=== PATIENT | female | born 1965 | race Caucasian/White ===

== ENCOUNTER 2016-07-28 01:39 | Emergency (ER) | payer OTHER ==
[~2016-07-28] VITALS: Ht 172.7 cm; Wt 90.0 kg
[2016-07-28 01:43] VITALS: BP 160/67; PULSE 95; RESP 16; TEMP 98; O2SAT 100
[2016-07-28] MEDS ORDERED: SODIUM CHLORIDE 0.9% FLUSH 5 ML FLUSH IVF PRN (01:45)
[2016-07-28] MEDS ORDERED: ADVA250A INH ×2 (01:46→02:34)
[2016-07-28] MEDS ORDERED: VENTAER INH ×2 (01:46→02:34)
[2016-07-28 01:48] VITALS: RESP 16; O2SAT 96
--- NOTE | 2016-07-28 02:01 | PD ---
HPI Chief Complaint: Respiratory Symptoms Time Seen by Provider: 01:45 Travel History International Travel<30 days: No Contact w/Intl Traveler<30days: No Traveled to known affect area: No History of Present Illness HPI 50-year-old female with history of asthma here with complaint of shortness of breath. Patient is here on vacation from [place]. She is staying at a hotel. States that the odor in the room smelled a little musty and seems to have triggered her asthma. She woke up from sleep this evening with wheezing, shortness of breath and feeling tight throughout the chest. She tried her albuterol inhaler without much improvement and called EMS. EMS noted patient to be hypoxic to approximately 88%. He given albuterol 2 and 125 mg Solu- Medrol with significant improvement of her symptoms. No recent illness, congestion, fevers or chills. PFSH Past Medical History Respiratory: Yes Past Surgical History Section: Yes Other Surgery: Yes (tubal ligation, back surgery 2) Social History Alcohol Use: Yes (occasional) Tobacco Use: No Allergies-Medications (Allergen,Severity, Reaction): Coded Allergies: Augmentin (Verified Allergy, Unknown, 07/28/16) Reported Meds & Prescriptions Reported Meds & Active Scripts Active Reported Advair Diskus Inh (Fluticasone-Salmeterol Inh) 250-50 Mcg/Blist Aer 2 Puff INH DAILY Rinse mouth after use. Ventolin Hfa 18 GM Inh (Albuterol Sulfate) 90 Mcg/Act Aer 2 Puff INH Q4H PRN Review of Systems Except as stated in HPI: all other systems reviewed are Neg Physical Exam Narrative GENERAL: Well-appearing female in no acute distress SKIN: Warm and dry. HEAD: Normocephalic. EYES: No scleral icterus. No injection or drainage. ENT: Mucous membranes pink and moist. NECK: Supple CARDIOVASCULAR: Borderline tachycardia with heart rate in the 90s to 100 100s, regular rhythm. No murmur appreciated. RESPIRATORY: Mild respiratory distress with wheezing throughout, no increased work of breathing. GASTROINTESTINAL: Abdomen soft, non-tender, nondistended. MUSCULOSKELETAL: Moves all extremities normally. No edema. NEUROLOGICAL: Awake and alert. Normal speech. PSYCHIATRIC: Appropriate mood and affect; insight and judgment normal. Data Data Last Documented VS Vital Signs Date Time Temp Pulse Resp B/P Pulse Ox O2 Delivery O2 Flow Rate FiO2 2/5/17 01:48 16 96 Aerosol Mask 07/28/16 01:43 98.0 95 160/67 Orders Iv Access Insert/Monitor (07/28/16 01:45) Electrocardiogram (07/28/16 01:45) Ecg Monitoring (07/28/16 01:45) Oximetry (07/28/16 01:45) Chest, Single Ap (07/28/16 01:45) Sodium Chloride 0.9% Flush (Ns Flush) (07/28/16 01:45) Albuterol-Ipratropium Neb (Duoneb Neb) (07/28/16 01:45) MDM Medical Decision Making Medical Screen Exam Complete: Yes Emergency Medical Condition: Yes Medical Record Reviewed: Yes Differential Diagnosis 50-year-old female with history of asthma here with complaint of wheezing, shortness of breath and chest tightness. Exam is consistent with asthma exacerbation, differential includes pneumonia, arrhythmia, pneumothorax and less likely ACS. Narrative Course A sin placed on monitor, IV established. Given 125 mg Solu-Medrol already by EMS prior to arrival. Given DuoNeb 3. Twelve-lead EKG shows sinus tachycardia , rate [address] abnormalities, normal intervals. Portable chest x -ray obtained that by my read shows no acute abnormalities. Patient felt markedly improved and will be discharged to home with steroids and MDI therapy as needed. Diagnosis Primary Impression: Asthma exacerbation Referrals: Primary Care Physician as needed Additional Instructions: Steroids, inhalers as prescribed. Return to the ER for the warning signs discussed. Med/Other Pt SpecificInfo: Prescription(s) given Scripts Prednisone 50 Mg Tab50 Mg PO DAILY 5 Days Ref 0 Prov:Laura Howard MD 07/28/16 Fluticasone-Salmeterol Inh (Advair Diskus Inh)250-50 Mcg/Blist Aer2 Puff INH DAILY #1 INHALER Ref 0 Rinse mouth after use. Prov:Laura Howard MD 07/28/16 Albuterol 18 GM Inh (Ventolin Hfa 18 GM Inh)90 Mcg/Act Aer2 Puff INH Q4H PRN ( SHORTNESS OF BREATH) #1 INHALER Ref 0 Prov:Laura Howard MD 07/28/16 Disposition: 01 DISCHARGE HOME Condition: Stable Laura Howard MD Jul 28, 2016 02:01
--- NOTE | 2016-07-28 02:06 | RADRPT ---
EXAM DATE/TIME: 07/28/2016 01:54 [facility] COMPARISON: No previous studies available for comparison. INDICATIONS : Shortness of breath. MEDICAL HISTORY : Asthma SURGICAL HISTORY : None. ENCOUNTER: Initial ACUITY: 1 day PAIN SCORE: 0/10 LOCATION: Bilateral chest FINDINGS: Portable AP view of the chest demonstrates a normal-sized cardiac silhouette. No effusion, consolidat ion, or pneumothorax is visualized. The bones and soft tissues demonstrate no acute abnormality. CONCLUSION: No acute cardiopulmonary abnormality is identified. Fish Zuleta MD on July 28, 2016 at 2:04 Board Certified Radiologist. This report was verified electronically.
[2016-07-28] MEDS: RESP: ALBUTEROL 2.5 MG/IPRATROPIUM 0.5 MG NEB (SCH) INH (02:13)
[2016-07-28] MEDS ORDERED: PRED50 PO ×2 (02:34→03:01)
[2016-07-28 02:56] VITALS: BP 128/62; PULSE 123; RESP 18; O2SAT 97
--- NOTE | 2016-07-28 11:50 | EKG ---
Date Performed: 07/28/2016 Time Performed: 01:43:21 PTAGE: 50 years EKG: SINUS TACHYCARDIA ABNORMAL RHYTHM ECG NO PREVIOUS TRACING DOCTOR: Esha Griffith Interpretating Date/Time 07/28/2016 11:47:44
== END 2016-07-28 03:12 | disposition home or self-care (01) ==
LOC: NEPE 01:39
DX: J45.901 Unspecified asthma with (acute) exacerbation (principal)
CPT/HCPCS: 71010; 93005; 94640; 94664